=== PATIENT | female | born 1965 | race Asian ===

== ENCOUNTER 2016-05-11 19:57 | Emergency (ER) | payer BC ==
[~2016-05-11] VITALS: Ht 165.1 cm; Wt 54.4 kg
[2016-05-11 20:00] VITALS: BP 124/87; PULSE 79; RESP 16; TEMP 98.3; O2SAT 100
--- NOTE | 2016-05-11 20:10 | NUR ---
Placed in room 06 . Placed on color television console monitor, blood pressure machine and pulse oximeter. To gown for exam. Side rails up. Report given to JONO Witt.
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
--- NOTE | 2016-05-11 20:44 | NUR ---
ER at bedside examining patient.
[2016-05-11] MEDS ORDERED: IBUPROFEN 600 MG TABLET PO ONE (20:45)
[2016-05-11 21:30] VITALS: BP 124/87; PULSE 79; RESP 16; TEMP 98.3; O2SAT 100
--- NOTE | 2016-05-11 21:30 | NUR ---
Patient given written and verbal discharge instructions and verbalizes understanding. ER MD discussed with patient the results and treatment provided. Patient in stable condition. ID arm band removed. Rx of ibuprofen given. Patient educated on pain management and to follow up with PMD. Pain Scale 0/10. Opportunity for questions provided and answered.
== END 2016-05-11 21:30 | disposition home or self-care (01) ==
LOC: SED 19:57
DX: T14.8 Other injury of unspecified body region (principal); R00.2 Palpitations; I49.1 Atrial premature depolarization; R10.9 Unspecified abdominal pain; R51 Headache; F32.9 Major depressive disorder, single episode, unspecified; Z85.3 Personal history of malignant neoplasm of breast; V89.2XXA Person injured in unspecified motor-vehicle accident, traffic, initial encounter; W22.10XA Striking against or struck by unspecified automobile airbag, initial encounter; Y93.89 Activity, other specified; Y99.8 Other external cause status; Y92.89 Other specified places as the place of occurrence of the external cause
CPT/HCPCS: 81025; 93005; 99283